=== PATIENT | male | born 1965 | race Caucasian/White ===

== ENCOUNTER 2022-07-20 16:51 | Emergency (ER) | payer MEDICAID ==
[~2022-07-20] VITALS: Ht 177.8 cm; Wt 93.2 kg
[~2022-07-20 16:51] MED LIST: CARV3.122 PO; FURO40TA4 PO; LISI2.5T14 PO; METF-900 PO; PRED10TA23 PO
[2022-07-20 16:57] VITALS: BP 147/99
[2022-07-20 17:35] LABS: BASOPHILS % (AUTO) 0.5 % (0-1); EOSINOPHILS # (AUTO) 0.2 X10'3 (0-0.9); HEMATOCRIT 39.1 % (42.0-52.0); HEMOGLOBIN 12.6 g/dl (14.0-17.9); LYMPHOCYTES % (AUTO) 23.2 % (21-51); MEAN CORPUSCULAR HEMOGLOBIN 28.4 PG (27.0-31.0); MEAN CORPUSCULAR HGB CONC 32.2 g/dL (33.0-36.5); MEAN CORPUSCULAR VOLUME 88.1 FL (78-98); MONOCYTES # (AUTO) 0.9 X10'3 (0-0.9); MONOCYTES % (AUTO) 10.9 % (2-12); NEUTROPHILS # (AUTO) 5.5 X10'3 (1.8-7.7); NEUTROPHILS % (AUTO) 63.4 % (42-75); PLATELET COUNT 131 X10'3 (140-440); RED BLOOD COUNT 4.44 X10'6 (4.70-6.10); RED CELL DISTRIBUTION WIDTH 17.7 % (11.5-14.5); WHITE BLOOD COUNT 8.6 X10'3 (4.5-11.0)
[2022-07-20 17:41] LABS: ALANINE AMINOTRANSFERASE 10 U/L (12-78); ALBUMIN 3.4 G/DL (3.4-5.0); ALBUMIN/GLOBULIN RATIO 0.7 (1.1-1.5); ALKALINE PHOSPHATASE 142 IU/L (46-116); ANION GAP 6 (8-16); ASPARTATE AMINO TRANSFERASE 21 U/L (10-37); BILIRUBIN,TOTAL 0.8 MG/DL (0.1-1.0); BLOOD UREA NITROGEN 16 MG/DL (7-18); BUN/CREATININE RATIO 13.9 (5.4-32.0); CALCIUM 9.8 MG/DL (8.5-10.1); CHLORIDE 105 MMOL/L (99-107); CREATININE 1.15 MG/DL (0.60-1.10); GLUCOSE 220 MG/DL (70-104); POTASSIUM 4.6 MMOL/L (3.5-5.1); SODIUM 137 MMOL/L (135-145); TOTAL PROTEIN 8.4 G/DL (6.4-8.2); eGFR 66 ML/MIN
[2022-07-20 17:47] LABS: ETHANOL < 0.010 GM/DL (0.0-0.010)
== END 2022-07-20 21:05 | disposition left against medical advice (07) ==
LOC: ER 16:51
DX: R06.02 Shortness of breath (principal); F15.10 Other stimulant abuse, uncomplicated; I50.9 Heart failure, unspecified; J45.909 Unspecified asthma, uncomplicated; E11.9 Type 2 diabetes mellitus without complications
CPT/HCPCS: 36415; 71045; 80053; 80320; 83880; 84484; 85025; 93005; 99285

== ENCOUNTER 2022-08-19 10:13 | Emergency (ER) | payer MEDICAID ==
[~2022-08-19] VITALS: Ht 177.8 cm; Wt 100.0 kg
[2022-08-19 10:18] VITALS: BP 128/95
[2022-08-19] MEDS ORDERED: amox tr/potassium clavulanate 875/125mg TAB PO ONE (11:10)
[2022-08-19] MEDS ORDERED: DOXYCYCLINE 100MG CAPSULE PO STA (11:10)
[2022-08-19] MEDS ORDERED: DOXY-1 PO (11:16)
[2022-08-19] MEDS ORDERED: AMOX-117 PO (11:16)
== END 2022-08-19 11:41 | disposition home or self-care (01) ==
LOC: ER 10:13
DX: J18.9 Pneumonia, unspecified organism (principal); I50.9 Heart failure, unspecified; J44.9 Chronic obstructive pulmonary disease, unspecified; G89.29 Other chronic pain; F17.200 Nicotine dependence, unspecified, uncomplicated; F15.90 Other stimulant use, unspecified, uncomplicated; Z79.899 Other long term (current) drug therapy
CPT/HCPCS: 71045; 99283

== ENCOUNTER 2024-01-20 14:22 | Emergency (ER) | payer MEDICAID ==
[~2024-01-20] VITALS: Ht 172.7 cm; Wt 72.7 kg
[2024-01-20 15:20] LABS: BASOPHILS % (AUTO) 0.9 % (0-1); EOSINOPHILS # (AUTO) 0.1 X10'3 (0-0.9); EOSINOPHILS % (AUTO) 2.5 % (0-6); HEMOGLOBIN 9.8 g/dl (14.0-17.9); INR 1.2 INR; LYMPHOCYTES # (AUTO) 1.2 X10'3 (1.1-4.8); LYMPHOCYTES % (AUTO) 31.6 % (21-51); MEAN CORPUSCULAR HEMOGLOBIN 27.8 PG (27.0-31.0); MEAN CORPUSCULAR HGB CONC 31.5 g/dL (33.0-36.5); MEAN CORPUSCULAR VOLUME 88.2 FL (78-98); MEAN PLATELET VOLUME 9.1 FL (7.4-10.4); MONOCYTES # (AUTO) 0.4 X10'3 (0-0.9); MONOCYTES % (AUTO) 11.2 % (2-12); NEUTROPHILS % (AUTO) 53.8 % (42-75); PLATELET COUNT 183 X10'3 (140-440); PROTHROMBIN TIME 13.1 SECONDS (9.0-12.0); RED BLOOD COUNT 3.52 X10'6 (4.70-6.10); WHITE BLOOD COUNT 3.7 X10'3 (4.5-11.0)
[2024-01-20 15:30] LABS: ANION GAP 11 (8-16); BLOOD UREA NITROGEN 22 MG/DL (7-18); BUN/CREATININE RATIO 14.9 (10.0-20.0); CALCIUM 9.1 MG/DL (8.5-10.1); CHLORIDE 104 MMOL/L (99-107); CREATININE 1.48 MG/DL (0.60-1.10); GLUCOSE 138 MG/DL (70-104); MAGNESIUM 1.8 MG/DL (1.5-2.4); POTASSIUM 4.8 MMOL/L (3.5-5.1); PRO BRAIN NATRIURETIC PEPTIDE 9750 PG/ML (0-125); SODIUM 140 MMOL/L (135-145); TOTAL CARBON DIOXIDE 25.2 MMOL/L (24-32); eCRCL 53 ML/MIN; eGFR 49 ML/MIN
[2024-01-20] MEDS: potassium Cl 20 mEq SR tablet PO STA (16:20)
[2024-01-20] MEDS: furosemide 20MG tablet PO ONE (16:20)
[2024-01-20 18:09] VITALS: BP 134/88; PULSE 94; RESP 16; TEMP 97.7; O2SAT 99
== END 2024-01-20 18:12 | disposition home or self-care (01) ==
LOC: ER 14:22
DX: I50.9 Heart failure, unspecified (principal); J44.9 Chronic obstructive pulmonary disease, unspecified; E11.9 Type 2 diabetes mellitus without complications; G89.29 Other chronic pain; F15.90 Other stimulant use, unspecified, uncomplicated; Z79.899 Other long term (current) drug therapy
CPT/HCPCS: 36415; 71045; 80048; 83735; 83880; 84484; 85025; 85610; 93005; 99285

== ENCOUNTER 2024-06-05 13:58 | Emergency (ER) | payer MEDICAID ==
[~2024-06-05] VITALS: Ht 180.3 cm; Wt 78.6 kg
[2024-06-05 14:44] VITALS: BP 144/80; PULSE 99; RESP 18; TEMP 98.5; O2SAT 95
[2024-06-05] MEDS ORDERED: ketorolac trometh 30MG/ML vial 30 MG/ML VIAL IM ONE (16:10)
[2024-06-05] MEDS: ketorolac trometh 15mg/ml vial 15 MG/ML ML IM ONE (16:17)
== END 2024-06-05 16:49 | disposition home or self-care (01) ==
LOC: ER 13:58
DX: M25.511 Pain in right shoulder (principal); I50.9 Heart failure, unspecified; E11.9 Type 2 diabetes mellitus without complications; J44.9 Chronic obstructive pulmonary disease, unspecified; F15.90 Other stimulant use, unspecified, uncomplicated
CPT/HCPCS: 73030; 96372; 99283; J1885; A4565